=== PATIENT | female | born 1945 | race Caucasian/White ===

== ENCOUNTER → 2017-11-29 | Outpatient (CLI) | payer MEDICARE ==
[2017-11-30 02:38] LABS: Source CERVIX/VAG/ENDO
== END ==
LOC: LAB 10:16
PROVIDERS: Nurse Practitioner
DX: Z01.419 Encounter for gynecological examination (general) (routine) without abnormal findings (principal)
CPT/HCPCS: G0145

== ENCOUNTER → 2020-03-14 | Outpatient (CLI) | payer MEDICARE ==
[2020-03-15 14:19] LABS: Adenovirus F 40/41 Not Detected (NOT DETECT); Astrovirus Not Detected (NOT DETECT); Campylobacter Sp Not Detected (NOT DETECT); Cryptosporidium Not Detected (NOT DETECT); Cyclospora Cayetanensis Not Detected (NOT DETECT); E. Coli O157 Not Detected (NOT DETECT); Entamoeba Histolytica Not Detected (NOT DETECT); Enteroaggregative E. coli-EAEC Not Detected (NOT DETECT); Enteropathogenic E. coli-EPEC Not Detected (NOT DETECT); Enterotoxigenic E. coli-ETEC Not Detected (NOT DETECT); Giardia Lamblia Not Detected (NOT DETECT); Norovirus GI/GII Not Detected (NOT DETECT); Plesiomonas Shigelloides Not Detected (NOT DETECT); Rotavirus A Not Detected (NOT DETECT); Salmonella Sp Not Detected (NOT DETECT); Sapovirus Not Detected (NOT DETECT); Shiga Toxin-prod E. coli-STEC Not Detected (NOT DETECT); Shigella/Enteroin E. coli-EIEC Not Detected (NOT DETECT); Vibrio Cholerae Not Detected (NOT DETECT); Vibrio Sp Not Detected (NOT DETECT); Yersinia Enterocolitica Not Detected (NOT DETECT)
== END | disposition home or self-care (01) ==
LOC: LAB EV 07:05
PROVIDERS: Physician Assistant
DX: R19.7 Diarrhea, unspecified (principal)
CPT/HCPCS: 0097U

== ENCOUNTER → 2020-04-28 | Outpatient (CLI) | payer OTHER | END | disposition home or self-care (01) | LOC: PLD 08:30 → LAB SHORT 08:30 | DX: D48.5 Neoplasm of uncertain behavior of skin (principal); L72.9 Follicular cyst of the skin and subcutaneous tissue, unspecified | CPT/HCPCS: 88304 ==

== ENCOUNTER 2023-10-26 07:32 | Emergency (ER) | payer OTHER ==
[~2023-10-26] VITALS: Ht 160 cm; Wt 80.7 kg
[2023-10-26] MEDS ORDERED: HYDCHL25 PO (08:08)
[2023-10-26] MEDS ORDERED: LOSARTAN POTAS100 M1 PO (08:08)
[2023-10-26] MEDS ORDERED: LEVSOD75 PO (08:09)
[2023-10-26] MEDS ORDERED: ALEN70 PO (08:09)
[2023-10-26] MEDS ORDERED: METO100ER PO (08:09)
[2023-10-26] MEDS ORDERED: ATOR20 PO (08:09)
[2023-10-26] MEDS ORDERED: ALBU8HFA2 INH (08:10)
[2023-10-26 09:58] VITALS: BP 139/68
== END 2023-10-26 09:58 | disposition home or self-care (01) ==
LOC: ER 07:32
DX: S76.912A Strain of unspecified muscles, fascia and tendons at thigh level, left thigh, initial encounter (principal); E03.9 Hypothyroidism, unspecified; Z79.899 Other long term (current) drug therapy; X58.XXXA Exposure to other specified factors, initial encounter
CPT/HCPCS: 93971; 99283-25

== ENCOUNTER 2025-06-24 10:49 | Day surgery (SDC) | payer OTHER ==
[~2025-06-24] VITALS: Ht 160 cm; Wt 82.1 kg
[~2025-06-24 10:49] MED LIST: ALBU8HFA2 INH; ALEN70 PO; ATOR20 PO; HYDCHL25 PO; LEVSOD75 PO; LOSARTAN POTAS100 M1 PO; METO100ER PO; Ondansetron 4 MG SoluTab MM PRN; Povidone-Iodine 450 DROP/30 ML Solution ONE; Tetracaine HCl/Pf 0.5% Opth Soln 4 ml ONE
[2025-06-24] MEDS ORDERED: ACET500 PO (11:30)
[2025-06-24] MEDS ORDERED: IBUP200 (11:30)
--- NOTE | 2025-06-24 12:02 | NUR ---
06/24/25 1202 Hannah Fletcher VITALS AT 1201 BP: 140/50 P: 53 O2: 99% WITH 9 LITERS OF BLOW BY OXYGEN
[2025-06-24 12:17] VITALS: BP 127/46
[2025-06-25] MEDS ORDERED: Moxifloxacin HCL 0.5 MG/0.1 ML 0.4MLSYR LEFTEYE SCH (06:00)
[2025-06-25] MEDS ORDERED: PHENYLEPHRINE\\TROPICAMIDE\\TETRACAINE OPHTHALMIC DILATING SOLN LEFTEYE PRN (06:00)
[2025-06-25] MEDS ORDERED: Balanced Salt Epinephrine Irrigation Solution 500 mL IR SCH (06:00)
[2025-06-25] MEDS ORDERED: Povidone-Iodine 450 DROP/30 ML Solution LEFTEYE SCH (06:00)
== END 2025-06-24 12:30 | disposition home or self-care (01) ==
LOC: ORSCSDS 10:49
PROVIDERS: Student in an Organized Health Care Education/Training Program
PROC: 08RK3JZ Replacement of Left Lens with Synthetic Substitute, Percutaneous Approach (ICD-10-PCS; principal; 2025-06-24 12:30)
DX: H25.812 Combined forms of age-related cataract, left eye (principal); Z96.1 Presence of intraocular lens; Z79.899 Other long term (current) drug therapy
CPT/HCPCS: A9270; V2632